=== PATIENT | female | born 1985 | race Caucasian/White ===

== ENCOUNTER 2016-10-29 05:58 | Day surgery (SDC) | payer OTHER ==
[~2016-10-29] VITALS: Ht 162.6 cm; Wt 63.6 kg
[2016-10-29] MEDS ORDERED: FEXO15TA PO (06:39)
[2016-10-29] MEDS ORDERED: CLON0.5T PO (06:39)
[2016-10-29] MEDS ORDERED: METO25TA3 PO (06:39)
[2016-10-29 06:42] VITALS: BP 121/81; PULSE 78; RESP 16; TEMP 98.3; O2SAT 99
[2016-10-29] MEDS ORDERED: LORazepam 1 MG TAB SL SCH (06:45)
[2016-10-29] MEDS ORDERED: LACTATED RINGER'S 1000 ML IV SCH (06:45)
[2016-10-29] MEDS ORDERED: SODIUM CHLORID 0.9% 500 ML IV SCH (06:45)
[2016-10-29] MEDS ORDERED: METOPROLOL TARTRATE 25 MG TAB PO PRN (06:45)
[2016-10-29] MEDS ORDERED: SODIUM CHLORID 0.9% 500 ML INJ 500 ML IV SCH (06:45)
[2016-10-29] MEDS ORDERED: INSULIN HUMAN REGULAR 1,000 UNITS/10 ML VIAL SQ PRN (06:45)
[2016-10-29 07:24] LABS: AUTOMATED NEUTROPHIL # 3.8 TH/MM3 (1.8-7.7); BASOPHIL % 0.5 % (0.0-2.0); EOSINOPHIL # 0.1 TH/MM3 (0-0.4); EOSINOPHIL % 1.7 % (0.0-4.0); HEMATOCRIT 34.7 % (35.0-46.0); HEMO FLAGS DIFF FINAL; LYMPH % 30.8 % (9.0-44.0); MEAN CELL VOLUME 87.3 FL (80.0-100.0); MEAN CORPUSCULAR HEMOGLOBIN 30.2 PG (27.0-34.0); MEAN CORPUSCULAR HGB CONC 34.6 % (32.0-36.0); MONO % 7.6 % (0.0-8.0); NEUT % 59.4 % (16.0-70.0); PLATELET COUNT 194 TH/MM3 (150-450); RED BLOOD COUNT 3.98 MIL/MM3 (4.00-5.30); RED CELL DISTRIBUTION WIDTH 12.4 % (11.6-17.2); WHITE BLOOD COUNT 6.3 TH/MM3 (4.0-11.0)
[2016-10-29] MEDS ORDERED: ISOPROTERENOL HCL 1 MG/5 ML AMP ONE (07:28)
[2016-10-29] MEDS ORDERED: HEPARIN-D5W INJ 250 ML ONE (07:28)
[2016-10-29] MEDS ORDERED: MIDAZOLAM HCL 2 MG/2 ML VIAL ONE (07:28)
[2016-10-29] MEDS ORDERED: PROTAMINE SULFATE 50 MG/5 ML VIAL ONE (07:28)
[2016-10-29] MEDS ORDERED: ONDANSETRON HCL 4 MG/2 ML VIAL ONE (07:29)
[2016-10-29] MEDS ORDERED: fentaNYL CITRATE 250 MCG/5 ML AMP ONE (07:29)
[2016-10-29] MEDS ORDERED: HEPARIN SODIUM - IV 10,000 UNITS/10 ML VIAL ONE (07:29)
[2016-10-29 07:34] LABS: APTT (PATIENT) 25.7 SEC (24.3-30.1); PROTHROMBIN TIME - PATIENT 11.6 SEC (9.8-11.6)
[2016-10-29 07:49] LABS: ANION GAP 6 MEQ/L (5-15); BICARBONATE 28.8 MEQ/L (21.0-32.0); BLOOD UREA NITROGEN 16 MG/DL (7-18); CHLORIDE 106 MEQ/L (98-107); GLOMERULAR FILTRATION RATE 160 ML/MIN (>89); POTASSIUM 3.7 MEQ/L (3.5-5.1); SODIUM (NA) 141 MEQ/L (136-145)
[2016-10-29 07:53] LABS: BETA HCG QUANT LESS THAN 1 MIU/ML (0-5)
[2016-10-29] MEDS ORDERED: DO NOT ADM ANY ANTICOAGULANT DRUGS XX PRN ×2 (09:13→10:45)
--- NOTE | 2016-10-29 09:44 | MA ---
cc: SERGEI SNOW M.D. 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 INDICATIONS Ms. Dolan is a 31-year-old, female with history of recurrent episode of supraventricular tachyarrhythmia, previous emergency room visit, referred for electrophysiology study and ablation. The risks, the nature and the benefit of the procedure are clearly stated to her. The risks include pneumothorax, cardiac perforation, stroke, need for open heart surgery and even . The patient understood and agreed to proceed. PROCEDURE After written informed consent was obtained, the patient was brought to the EP lab where she was prepped and draped in the sterile fashion. Conscious sedation was initiated and maintained throughout the procedure by the anesthesiologist. Once sedation was verified, the right and left inguinal area was anesthetized with 2% Xylocaine. Using modified Seldinger technique, the left femoral vein was cannulated on two occasions. Two guidewires were advanced over the wire. Two 5-[place] Hemaquets were advanced. Then the right femoral vein was cannulated on three occasions. Three guidewires were advanced over the wire. A 5, a 6 and then an 8-[place] Hemaquet were advanced. Then under fluoroscopic guidance through the 5 and 6-[place] Hemaquet, four 5-[place] Canelo curved quadripolar electrophysiology catheters were advanced and placed on the His, upper right atrium, coronary sinus and right ventricular apex. Basic interval was measured; they were within normal limits. At this point atrial pacing protocol was performed. Atrial pacing protocol consisted of incremental atrial pacing as well as program stimulation with 110 cycle length and up to one extrastimuli delivered. During incremental pacing, supraventricular tachyarrhythmia of intracardiac characteristic of AV daisy reentrant tachycardia was induced. He was pace terminated. Then ventricular pacing protocol was performed. There was VA conduction; it was concentric. Then, through the 8-[place] Hemaquet, a Cordis-Aroar D-curved, 4-mm mapping and radiofrequency ablation catheter was advanced. Using Cyphort endocardial solution mapping system, a three-dimensional configuration of the right atrium was obtained. Then the catheter was at the tricuspid valve annulus. When the big V and a small trifurcated A observed, radiofrequency energy was delivered. The patient went into junctional rhythm. Further burn was delivered in the area. Then atrial pacing protocol was performed. No jump, no echo beat observed. Wenckebach was observed around 460 milliseconds. Wenckebach could not be achieved at the beginning of the case because the patient went easily into supraventricular tachyarrhythmia. Then ventricular pacing protocol was performed. No tachyarrhythmia was induced. Then Isuprel infusion was initiated at 5 mcg. Atrial pacing protocol was repeated again pre, during and post-Isuprel. No tachyarrhythmia was induced. No jump, no echo beat observed. At that point the procedure was complete. All catheters were removed. The patient is going to be transferred to the recovery room. No incident reported. The patient tolerated the procedure. Blood loss minimal. 1. ELECTROCARDIOGRAM AT BASELINE: The patient was in sinus. Postprocedure electrocardiogram was unchanged. 2. BASIC INTERVAL: Base cycle length was 670 milliseconds, AH at 74 and HV at 55 milliseconds. 3. ATRIAL PACING PROTOCOL: Wenckebach of the node post-ablation was 260 milliseconds. During the atrial pacing protocol supraventricular tachyarrhythmia was induced. 4. VENTRICULAR PACING PROTOCOL: There was VA conduction it was concentric. 5. TACHYARRHYTHMIA: Supraventricular tachyarrhythmia of intracardiac characteristic of AV daisy reentrant tachycardia was induced; it was mapped and ablated. Ablation was successful. CONCLUSION Successful electrophysiology study, mapping radiofrequency ablation of AV daisy reentrant tachyarrhythmia. COMMENT AND RECOMMENDATION The patient is going to be transferred to the recovery room. She will be observed and if stable can be discharged home in the morning. Sergei Snow MD HS/SSB /9:21 AM /9:29 AM
--- NOTE | 2016-10-29 11:40 | EKG ---
Date Performed: 10/29/2016 Time Performed: 07:02:14 PTAGE: 31 years EKG: Sinus rhythm Normal ECG NO PREVIOUS TRACING DOCTOR: Seth Giles Interpretating Date/Time 10/29/2016 11:37:34
[2016-10-29] MEDS: ACETAMINOPHEN/HYDROcodone 325 MG/10 MG TAB PO PRN ×2 (12:39→16:49)
[2016-10-29] MEDS ORDERED: SODIUM CHLOR 0.9% 250 ML BAG IV ONE (15:17)
[2016-10-29] MEDS ORDERED: PROPOFOL 200 MG/20 ML AMP IV ONE (15:17)
[2016-10-29 20:00] VITALS: BP 111/85; PULSE 76; RESP 16; TEMP 98.4; O2SAT 98
[2016-10-30] VITALS (12 sets, daily range): BP systolic 98–111; BP diastolic 68–77; PULSE 72–97; RESP 16–18; TEMP 98–98.6; O2SAT 98–100
--- NOTE | 2016-10-30 08:51 | PD.CARD.PN ---
Subjective Subjective Remarks Stable s/p AVNRT ablation Objective Medications Current Medications Medications (Trade) Dose Ordered Sig/Ana Maria Route Start Time Stop Time Status Last Admin Sodium Chloride 500 ml @ 30 mls/hr [id number] IV 10/29/16 06:45 (Lr 1000 ml Inj) 1,000 ml @ 30 mls/hr Q24H IV 10/29/16 06:45 Miscellaneous Information ALL NURSING DEPARTME... UNSCH PRN XX 10/29/16 09:13 10/30/16 09:12 ([place] 10-325 Mg) 1 tab Q4H PRN PO 10/29/16 12:15 10/29/16 16:49 Vital Signs / I&O Vital Signs Date Time Temp Pulse Resp B/P Pulse Ox O2 Delivery O2 Flow Rate FiO2 10/30/16 05:21 98.6 78 16 102/69 98 10/30/16 00:00 98.6 79 16 98/70 98 10/29/16 20:00 98.4 76 16 111/85 98 10/29/16 18:23 18 10/29/16 09:40 Room Air I/O 10/29/16 10/29/16 10/29/16 10/30/16 10/30/16 10/30/16 07:00 15:00 23:00 07:00 15:00 23:00 Intake Total 400 ml Balance 400 ml Intake Oral 400 ml # Voids 3 Physical Exam GENERAL: Well-nourished, well-developed patient. SKIN: Warm and dry. Groins sites soft with no erythema/drainage. HEAD: Normocephalic. EYES: No scleral icterus. No injection or drainage. NECK: Supple, trachea midline. No JVD or lymphadenopathy. CARDIOVASCULAR: Regular rate and rhythm without murmurs, gallops, or rubs. RESPIRATORY: Breath sounds equal bilaterally. No accessory muscle use. Right lateral breast mass, tender to palpation. GASTROINTESTINAL: Abdomen soft, non-tender, nondistended. EXTREMITIES: No cyanosis, or edema. NEUROLOGICAL: Awake, alert, and oriented x 3. Non-focal. Assessment and Plan Problem List: (1) AVNRT (AV daisy re-entry tachycardia) Assessment and Plan: No palpitations, no recurrence s/p AVNRT ablation. Once seen by MATH PROFESSOR can be discharged if stable. (2) Mass of breast, right Assessment and Plan: Right lateral tender breast mass. Will have evaluated prior to DC. Assessment and Plan D/W Dr. Snow, pt., RN. Madison Granger Oct 30, 2016 08:51
--- NOTE | 2016-10-30 11:18 | RADRPT ---
EXAM DATE/TIME: 10/30/2016 10:29 [facility] COMPARISON: No previous studies available for comparison. INDICATIONS : Palpable mass. MEDICAL HISTORY : Psoriasis. SURGICAL HISTORY : Pacemaker. ENCOUNTER: Initial ACUITY: 4-6 days PAIN SCORE: 4/10 LOCATION: Right breast. FINDINGS: A targeted ultrasound examination performed in right lateral breast in the area of palpable concern a nd demonstrated an ill-defined solid heterogeneous area measuring 5.6 x 2.0 x 4.8 cm in diameter. Thi s was not well defined and demonstrated normal color flow. This may represent asymmetric glandular ti ssue. There is no focal abscess. A small simple cyst was noted at the 10: 00 position measuring 5 mm. CONCLUSION: Large ill-defined heterogeneous region which may represent asymmetric glandular tissu e. Correlation with mammography is recommended. There is no abscess. Daren Son MD on October 30, 2016 at 10:58 Board Certified Radiologist. This report was verified electronically.
[2016-10-30] MEDS ORDERED: AMOXICILLIN/CLAVULANATE K 875 MG TAB PO SCH (13:00)
[2016-10-30] MEDS: ACETAMINOPHEN/HYDROcodone 325 MG/10 MG TAB PO PRN (13:14)
[2016-10-30] MEDS ORDERED: AUGM875T PO (17:47)
--- NOTE | 2016-10-30 21:43 | MB ---
cc: GUILLE ALVARENGA M.D. DATE OF CONSULTATION 10/30/2016 REASON FOR CONSULTATION Right lateral breast mass with discomfort. HISTORY OF PRESENT ILLNESS The patient reports an approximately two-week history of increasing discomfort in the right breast. 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 This was performed on 10/29/2016 and the patient mentioned her breast problem to the cardiac team. I am seeing the patient based on request for her breast. The patient reports that her mother is BRCA positive and had breast cancer. She was to get BRCA testing but did not have this done due to some issues with insurance and labs being sent to the wrong place. The patient has dense breasts, according to her report, and has had a mammogram previously. SOCIAL HISTORY The patient smokes and uses coffee daily. She drinks one drink a day. PAST MEDICAL HISTORY Hysterectomy and left salpingo-oophorectomy. She reports a right ovary is still in place and her appendix. PHYSICAL EXAMINATION GENERAL: A female in no acute distress. VITAL SIGNS: BP 108/68, pulse 72, respirations 18, temperature 98.0, 98% saturation on room air. Sclerae anicteric. CHEST: Clear to auscultation. CARDIAC: Regular rate and rhythm. BREASTS: Right breast is slightly pendulous. There is no nipple discharge. On the lateral part of the breast there is an approximately 3 cm soft, mobile, minimally tender mass. There is no overlying erythema. There is no axillary or supraclavicular adenopathy. ASSESSMENT Right breast painful mass. Ultrasound has been performed prior to this dictation and demonstrates no evidence of abscess. Correlation with mammography was recommended as there is an ill-defined region that may represent a symmetric glandular tissue. Right breast discomfort with mass effect, not abscess or cyst. PLAN I have recommended the patient return to her primary doctor and have given her a prescription for Augmentin 875 mg p.o. b.i.d. for seven days. I have instructed her to contact our office for follow up if the patient has a biopsy that is positive. I have recommended she have further imaging based on her primary care doctor's request at this point and I have voice my concern to her due to her mother's early diagnosis of breast cancer and BRCA positivity. She vocalizes understand and agrees to follow through. The patient may be discharged from a surgical standpoint as there is no acute problem that requires urgent surgical procedure today. MD FLACO Jimenez/ /9:23 PM /9:34 PM [facility]O
== END 2016-10-30 18:50 | disposition home or self-care (01) ==
LOC: HDIC 05:58 → HDOC 05:58 → HCIN 19:17 → HDOC 10-30 18:50
PROVIDERS: ATTEND Internal Medicine Interventional Cardiology
DX: I47.1 Supraventricular tachycardia (principal); N63 Unspecified lump in breast; I10 Essential (primary) hypertension; F17.200 Nicotine dependence, unspecified, uncomplicated; Z79.01 Long term (current) use of anticoagulants; Z95.0 Presence of cardiac pacemaker
CPT/HCPCS: 76642; 80048; 84702; 85025; 85610; 85730; 86850; 86900; 86901; 93005; 93613; 93623; 93653; C1730; C1732; C2630; J1644; J2250; J2405; J2720; J3010; J7050